=== PATIENT | female | born 1985 | race Two or more races ===

== ENCOUNTER 2018-07-04 20:18 | Emergency (ER) | payer OTHER ==
[2018-07-04 20:29] VITALS: BP 117/65
== END 2018-07-04 22:04 | disposition left against medical advice (07) ==
LOC: ER 20:18
DX: Z53.21 Procedure and treatment not carried out due to patient leaving prior to being seen by health care provider (principal)

== ENCOUNTER 2018-08-10 09:00 | Emergency (ER) | payer MEDICAID, OTHER ==
--- NOTE | 2018-08-10 09:37 | ER Document Report ---
ED General - General Chief Complaint: Weakness Stated Complaint: ARM/HAND TINGLING, FATIGUE Time Seen by Provider: 08/10/18 09:32 Mode of Arrival: Ambulatory Information source: Patient TRAVEL OUTSIDE OF THE [place] IN LAST 30 DAYS: No - HPI Patient complains to provider of: Fatigue Onset: Other - 4 days Onset/Duration: Persistent Quality of pain: No pain Associated symptoms: Body/muscle aches, Nausea, Weakness Exacerbated by: Denies Relieved by: Denies Similar symptoms previously: No Recently seen / treated by doctor: No Notes: Patient is a 33-year-old female presenting to the emergency room today complaining of feelings of generalized fatigue and not feeling herself patient reports using CBD oils times 3 months and recently discontinuing this, she started taking vitamin B12 a few days ago as well when she started feeling her symptoms, denies chest pain or shortness of breath, no fever, no nausea, vomiting or diarrhea - Related Data Allergies/Adverse Reactions: kiwi [Kiwi (Actinidia Chinensis)] Allergy (Verified 08/10/18 09:04) Past Medical History - General Information source: Patient - Social History Smoking Status: Never Smoker Frequency of alcohol use: None Drug Abuse: None Family History: Reviewed & Not Pertinent Patient has suicidal ideation: No Patient has homicidal ideation: No Renal/ Medical History: Denies: Hx Peritoneal Dialysis Psychiatric Medical History: Reports: Hx Anxiety - And panic attacks, Hx Depression Past Surgical History: Reports: Hx Section, Hx Genitourinary Surgery - Fallopian tube removed., Hx Tubal Ligation - Immunizations Hx Diphtheria, Pertussis, Tetanus Vaccination: Yes Review of Systems - Review of Systems Constitutional: See HPI EENT: No symptoms reported Cardiovascular: No symptoms reported Respiratory: No symptoms reported Gastrointestinal: No symptoms reported Genitourinary: No symptoms reported Female Genitourinary: No symptoms reported Musculoskeletal: No symptoms reported Skin: No symptoms reported Hematologic/Lymphatic: No symptoms reported Neurological/Psychological: See HPI -: Yes All other systems reviewed and negative Physical Exam - Vital signs Vitals: Temp Pulse Resp BP Pulse Ox 98.9 F 96 16 117/63 100 08/10/18 09:24 08/10/18 09:24 08/10/18 09:24 08/10/18 09:24 08/10/18 09:24 Interpretation: Normal - General General appearance: Appears well, Alert - HEENT Head: Normocephalic, Atraumatic Eyes: Normal Pupils: PERRL - Respiratory Respiratory status: No respiratory distress Chest status: Nontender Breath sounds: Normal Chest palpation: Normal - Cardiovascular Rhythm: Regular Heart sounds: Normal auscultation Murmur: No - Abdominal Inspection: Normal Distension: No distension Bowel sounds: Normal Tenderness: Nontender Organomegaly: No organomegaly - Back Back: Normal, Nontender - Extremities General upper extremity: Normal inspection, Nontender, Normal color, Normal ROM, Normal temperature General lower extremity: Normal inspection, Nontender, Normal color, Normal ROM, Normal temperature, Normal weight bearing. No: Marylu's sign - Neurological Neuro grossly intact: Yes Cognition: Normal Orientation: AAOx4 [place] Coma Scale Eye Opening: Spontaneous [place] Coma Scale Verbal: Oriented [place] Coma Scale Motor: Obeys Commands [place] Coma Scale Total: 15 Speech: Normal Motor strength normal: LUE, RUE, LLE, RLE Sensory: Normal - Psychological Associated symptoms: Anxious - Skin Skin Temperature: Warm Skin Moisture: Dry Skin Color: Normal Course - Re-evaluation Re-evalutation: 08/10/18 20:17 Lab findings unremarkable and discussed with patient at bedside, symptoms likely related to CBD oil usage and then abrupt stoppage, patient advised that symptoms may last for the next few days while the CBD oil is still in her system, advised to follow-up with a primary care provider or return if symptoms worsen, patient acknowledges understanding and agreement with this plan - Vital Signs Vital signs: Temp Pulse Resp BP Pulse Ox 98.2 F 92 18 124/74 99 08/10/18 12:20 08/10/18 12:20 08/10/18 12:20 08/10/18 12:20 08/10/18 12:20 - Laboratory Result Diagrams: 08/10/18 09:59 08/10/18 09:59 Laboratory results interpreted by me: 08/10/18 08/10/18 08/10/18 09:59 09:59 09:59 WBC 12.8 H RDW 14.3 H Seg Neutrophils % 82.6 H Lymphocytes % 11.7 L Absolute Neutrophils 10.6 H Carbon Dioxide 20 L Total Protein 8.4 H Albumin 5.3 H Urine Protein 30 H Urine Ketones 80 H Urine Blood MODERATE H - Diagnostic Test Radiology reviewed: Image reviewed, Reports reviewed Discharge - Discharge Clinical Impression: Paresthesias, Dehydration Fatigue Qualifiers: Fatigue type: unspecified Qualified Code(s): R53.83 - Other fatigue Condition: Stable Disposition: HOME, SELF-CARE Instructions: Fatigue ([facility]), Numbness or Paresthesia ([facility]) Additional Instructions: Follow up with your primary care provider in one to 2 days. Return to the emergency room immediately if symptoms worsen or any additional concerns.
[2018-08-10 10:27] LABS: ABSOLUTE BASOPHILS # (AUTO) 0.1 10^3/uL (0.0-0.2); ABSOLUTE LYMPHOCYTES (AUTO) 1.5 10^3/uL (0.5-4.7); ABSOLUTE MONOCYTES (AUTO) 0.6 10^3/uL (0.1-1.4); ABSOLUTE NEUT (AUTO) 10.6 10^3/uL (1.7-8.2); BASOPHILS % (AUTO) 0.5 % (0-2); EOSINOPHILS % (AUTO) 0.2 % (0-6); HEMOGLOBIN 14.8 g/dL (12.0-15.5); LYMPHOCYTES % (AUTO) 11.7 % (13-45); MEAN CORPUSCULAR HEMOGLOBIN 31.3 pg (27.0-33.4); MEAN CORPUSCULAR HGB CONC 33.6 g/dL (32.0-36.0); MEAN CORPUSCULAR VOLUME 93 fl (80-97); PLATELET COUNT 215 10^3/uL (150-450); RED BLOOD COUNT 4.72 10^6/uL (3.72-5.28); RED CELL DISTRIBUTION WIDTH 14.3 % (11.5-14.0); SEGMENTED NEUTROPHILS % (AUTO) 82.6 % (42-78); TOTAL CELLS COUNTED % (AUTO) 100 %; WHITE BLOOD COUNT 12.8 10^3/uL (4.0-10.5)
[2018-08-10 10:30] LABS: APPEARANCE,URINE CLOUDY; BILIRUBIN,URINE NEGATIVE (NEGATIVE); COLOR,URINE AMBER; GLUCOSE, URINE NEGATIVE (NEGATIVE); KETONES,URINE 80 mg/dL (NEGATIVE); LEUKOCYTE ESTERASE,URINE NEGATIVE (NEGATIVE); NITRITE,URINE NEGATIVE (NEGATIVE); PROTEIN,URINE 30 mg/dL (NEGATIVE); URINE SPECIFIC GRAVITY 1.028; UROBILINOGEN,URINE NEGATIVE mg/dL (<2.0)
[2018-08-10 10:41] LABS: ALANINE AMINOTRANSFERASE 21 U/L (9-52); ALBUMIN 5.3 g/dL (3.5-5.0); ALKALINE PHOSPHATASE 93 U/L (38-126); ANION GAP 15 (5-19); ASPARTATE AMINO TRANSFERASE 21 U/L (14-36); BILIRUBIN,DIRECT 0.2 mg/dL (0.0-0.4); BLOOD UREA NITROGEN 19 mg/dL (7-20); CALCIUM 9.8 mg/dL (8.4-10.2); CARBON DIOXIDE 20 mmol/L (22-30); CHLORIDE 103 mmol/L (98-107); GLUCOSE 98 mg/dL (75-110); POTASSIUM 3.7 mmol/L (3.6-5.0); SODIUM 138.4 mmol/L (137-145); TOTAL PROTEIN 8.4 g/dL (6.3-8.2)
[2018-08-10 11:50] LABS: URINE AMPHETAMINES SCREEN NEGATIVE; URINE BARBITURATES SCREEN NEGATIVE; URINE BENZODIAZEPINES SCREEN NEGATIVE; URINE COCAINE SCREEN NEGATIVE; URINE MARIJUANA (THC) SCREEN UNCONFIRMED POSITIVE; URINE METHADONE SCREEN NEGATIVE; URINE PHENCYCLIDINE SCREEN NEGATIVE
[2018-08-10 12:22] VITALS: BP 124/74
== END 2018-08-10 12:22 | disposition home or self-care (01) ==
LOC: ER 09:00
DX: R53.83 Other fatigue (principal); R20.2 Paresthesia of skin; E86.0 Dehydration; Z91.018 Allergy to other foods
CPT/HCPCS: 36415; 80053; 80307; 81001; 81025; 85025; 99284

== ENCOUNTER 2018-08-22 11:37 | Emergency (ER) | payer SELFPAY ==
[2018-08-22 12:43] LABS: ABSOLUTE LYMPHOCYTES (AUTO) 1.8 10^3/uL (0.5-4.7); ABSOLUTE MONOCYTES (AUTO) 0.5 10^3/uL (0.1-1.4); ABSOLUTE NEUT (AUTO) 5.5 10^3/uL (1.7-8.2); BASOPHILS % (AUTO) 0.4 % (0-2); EOSINOPHILS % (AUTO) 0.3 % (0-6); HEMATOCRIT 42.4 % (36.0-47.0); HEMOGLOBIN 14.7 g/dL (12.0-15.5); LYMPHOCYTES % (AUTO) 23.3 % (13-45); MEAN CORPUSCULAR HEMOGLOBIN 32.3 pg (27.0-33.4); MEAN CORPUSCULAR HGB CONC 34.7 g/dL (32.0-36.0); MEAN CORPUSCULAR VOLUME 93 fl (80-97); MONOCYTES % (AUTO) 6.2 % (3-13); PLATELET COUNT 256 10^3/uL (150-450); RED BLOOD COUNT 4.57 10^6/uL (3.72-5.28); SEGMENTED NEUTROPHILS % (AUTO) 69.8 % (42-78); TOTAL CELLS COUNTED % (AUTO) 100 %; WHITE BLOOD COUNT 7.9 10^3/uL (4.0-10.5)
--- NOTE | 2018-08-22 12:50 | RADIOLOGY REPORT (SQ) ---
EXAM DESCRIPTION: U/S ABDOMEN LIMITED W/O DOP COMPLETED DATE/TIME: 08/22/2018 12:41 pm REASON FOR STUDY: Known gallstones, worsening symptoms COMPARISON: Bilateral renal ultrasound 05/31/2015 TECHNIQUE: Dynamic and static grayscale images acquired of the abdomen and recorded on PACS. Additio nal selected color Doppler and spectral images recorded. LIMITATIONS: None. FINDINGS: PANCREAS: Midline pancreas unremarkable LIVER: No masses. Echotexture normal. LIVER VASCULATURE: Normal directional flow of the main portal vein and hepatic veins. GALLBLADDER: Multiple shadowing gallstones packed in the gallbladder. No gross gallbladder wall thic kening or pericholecystic fluid. Negative sonographic Alegre sign ULTRASOUND-DETECTED ALEGRE'S SIGN: Negative. INTRAHEPATIC DUCTS AND COMMON DUCT: CBD and intrahepatic ducts normal caliber. No filling defects. INFERIOR VENA CAVA: Normal flow. AORTA: No aneurysm. RIGHT KIDNEY: Normal size. Normal echogenicity. No solid or suspicious masses. No hydronephrosis. No calcifications. PERITONEAL AND RIGHT PLEURAL SPACE: No ascites or effusions. OTHER: No other significant findings. IMPRESSION: Multiple shadowing gallstones packed in the gallbladder. No gallbladder wall thickening or pericholecystic fluid. Negative sonographic Alegre sign today TECHNICAL DOCUMENTATION: JOB ID: [id number] [employer]- All Rights Reserved Reading location - IP/workstation name: [email or web address]
[2018-08-22 12:57] LABS: APPEARANCE,URINE CLEAR; BILIRUBIN,URINE NEGATIVE (NEGATIVE); COLOR,URINE STRAW; GLUCOSE, URINE NEGATIVE (NEGATIVE); KETONES,URINE NEGATIVE (NEGATIVE); LEUKOCYTE ESTERASE,URINE NEGATIVE (NEGATIVE); NITRITE,URINE NEGATIVE (NEGATIVE); PROTEIN,URINE NEGATIVE (NEGATIVE); URINE SPECIFIC GRAVITY 1.006; UROBILINOGEN,URINE NEGATIVE mg/dL (<2.0)
[2018-08-22 12:58] LABS: ALANINE AMINOTRANSFERASE 28 U/L (9-52); ALBUMIN 4.8 g/dL (3.5-5.0); ALKALINE PHOSPHATASE 89 U/L (38-126); ANION GAP 10 (5-19); ASPARTATE AMINO TRANSFERASE 28 U/L (14-36); BILIRUBIN,TOTAL 0.4 mg/dL (0.2-1.3); BLOOD UREA NITROGEN 13 mg/dL (7-20); CARBON DIOXIDE 26 mmol/L (22-30); CHLORIDE 105 mmol/L (98-107); GLUCOSE 105 mg/dL (75-110); POTASSIUM 3.9 mmol/L (3.6-5.0); SODIUM 140.5 mmol/L (137-145)
[2018-08-22 12:59] LABS: BILIRUBIN,DIRECT 0.2 mg/dL (0.0-0.4); LIPASE 51.2 U/L (23-300); TOTAL PROTEIN 8.6 g/dL (6.3-8.2)
--- NOTE | 2018-08-22 14:25 | ER Document Report ---
ED General - General Chief Complaint: Abdominal Pain Stated Complaint: ABDOMINAL PAIN Time Seen by Provider: 08/22/18 11:51 Notes: Patient is a 33-year-old female who presents emergency department with a chief complaint of pain in her right upper quadrant and a swollen gland on the right side of her neck. Her right upper quadrant abdominal pain started yesterday and describes it as an intermittent coming and going feeling like she had when she had gallbladder pain. She states that she was also seen last week for the same issue and changed her diet and forgot about the pain. She started eating fatty foods again and felt the pain again yesterday. The gland on the right side of her neck she noticed about 3 days ago. She also has had sinus pressure for the past week. She denies any smoking, alcohol use, or illicit drug use. Denies any nausea, vomiting, or diarrhea. Past medical history includes GERD and cholelithiasis. She is supposed to be taking Zantac, but stopped using it since last visit. TRAVEL OUTSIDE OF THE [place] IN LAST 30 DAYS: No - Related Data Allergies/Adverse Reactions: kiwi [Kiwi (Actinidia Chinensis)] Allergy (Verified 08/22/18 11:38) Past Medical History - Social History Smoking Status: Unknown if Ever Smoked Chew tobacco use (# tins/day): No Frequency of alcohol use: None Drug Abuse: None Family History: Reviewed & Not Pertinent Patient has suicidal ideation: No Patient has homicidal ideation: No Renal/ Medical History: Denies: Hx Peritoneal Dialysis GI Medical History: Reports: Hx Gastroesophageal Reflux Disease Psychiatric Medical History: Reports: Hx Anxiety - And panic attacks, Hx Depression - anxiety Past Surgical History: Reports: Hx Section, Hx Genitourinary Surgery - Fallopian tube removed., Hx Tubal Ligation - Immunizations Hx Diphtheria, Pertussis, Tetanus Vaccination: Yes Review of Systems - Review of Systems Notes: REVIEW OF SYSTEMS: CONSTITUTIONAL : Denies recent illness. Denies recent unintentional weight loss. Denies fever, chills, or sweats. EENT: See HPI CARDIOVASCULAR: Denies chest pain. RESPIRATORY: Denies shortness of breath, cough, congestion, difficulty breathing, or wheezing. GASTROINTESTINAL: See HPI GENITOURINARY: Denies difficulty urinating, burning, blood in urine, urgency or frequency. MUSCULOSKELETAL: Denies neck and back pain. Denies joint pain or swelling. SKIN: Denies rash, itchiness, or lesions HEMATOLOGIC : Denies easy bruising or bleeding. LYMPHATIC: See HPI NEUROLOGICAL: Denies no numbness or tingling denies weakness. Denies headache. Denies altered mental status. Denies alteration in speech. PSYCHIATRIC: Denies stress, anxiety, alteration in sleep patterns, or depression. All other systems reviewed and negative. Physical Exam - Vital signs Vitals: Temp Pulse Resp BP Pulse Ox 98.2 F 96 20 124/60 100 08/22/18 11:40 08/22/18 11:40 08/22/18 11:40 08/22/18 11:40 08/22/18 11:40 - Notes Notes: PHYSICAL EXAMINATION: GENERAL: Appears well, healthy, well-nourished, no acute distress. HEAD: Normocephalic, atraumatic. EYES: PERRL, conjunctiva normal, all extraocular movements intact, sclera nonicteric ENT: Moist mucous membranes. NECK: Supple, no noticeable swelling, redness, rash. Normal range of motion. LUNGS: Equal breath sounds bilaterally and clear to auscultation. No wheezes rales or rhonchi. CARDIOVASCULAR: S1-S2, regular rate, regular rhythm. Radial pulses 2+, normal. ABDOMEN: Normoactive bowel sounds. Soft, nontender, no guarding, no rebound tenderness, and no masses palpated. EXTREMITIES: Normal strength and range of motion, no pitting or edema. No cyanosis. NEUROLOGICAL: Moves all extremities upon command. Strength 5/5 in all extremit ies. PSYCH: Normal mood, normal affect. SKIN: Warm, dry. No rash, lesions, ulcerations noted. Normal skin turgor. Course - Re-evaluation Re-evalutation: 08/22/18 14:29 Patient's physical exam is unremarkable and she actually denies any pain at the time of my assessment. She does have gallstones noted on her right upper quadr ant ultrasound. She will be restarted on her Zantac and follow-up with outpatient surgery in regards to this visit. She does have tenderness to her maxillary sinuses. She will also be started on Augmentin for her sinus infection. I will also prescribe Flonase for the erythema and edema in her na yumi passages. Her hematology and chemistries are altogether unremarkable. Her hCG is negative. I do not suspect patient has any life-threatening etiology at this time. She is in agreement with the plan of care. Verbal discharge instructions were given to the patient. They verbalized understanding. They are stable for discharge. - Vital Signs Vital signs: Temp Pulse Resp BP Pulse Ox 98.2 F 96 20 124/60 100 08/22/18 11:40 08/22/18 11:40 08/22/18 11:40 08/22/18 11:40 08/22/18 11:40 - Laboratory Result Diagrams: 08/22/18 12:24 08/22/18 12:24 Laboratory results interpreted by me: 08/22/18 08/22/18 12:24 12:24 Total Protein 8.6 H Urine Blood SMALL H Discharge - Discharge Clinical Impression: Gall bladder stones Sinusitis Qualifiers: Sinusitis location: maxillary Chronicity: acute Recurrence: non-recurrent Qualified Code(s): J01.00 - Acute maxillary sinusitis, unspecified Condition: Stable Disposition: HOME, SELF-CARE Instructions: Gallbladder Disease ([facility]), Low-Fat Diet ([facility]) Additional Instructions: You were seen today in the emergency department for gallbladder pain and a swollen gland to the right side of your neck. You have a sinus infection and gallstones. Please follow-up with the surgeon below on Friday. You have also been given antibiotics, please finish all your antibiotics as prescribed. You have also been given Flonase, use as directed. Please follow-up with your primary care provider in the surgeon within the next week. Prescriptions: Amox Tr/Potassium Clavulanate [Augmentin 875-125 Tablet] 1 tab PO BID 10 Days #20 tablet Fluticasone Propionate [Flonase Nasal Latimer 50 Mcg/Latimer 16 gm] 2 sprays NASL Q12 #1 inhaler Ranitidine HCl [Zantac 150 mg Tablet] 150 mg PO BID #60 tablet Referrals: TAMEKA MARTINEZ MD [ACTIVE STAFF] - 08/24/18
[2018-08-22 14:54] VITALS: BP 109/65
== END 2018-08-22 14:54 | disposition home or self-care (01) ==
LOC: ER 11:37
DX: K80.20 Calculus of gallbladder without cholecystitis without obstruction (principal); J01.00 Acute maxillary sinusitis, unspecified; R10.11 Right upper quadrant pain; M54.2 Cervicalgia
CPT/HCPCS: 36415; 76705; 80053; 81001; 83690; 84703; 85025; 99284

== ENCOUNTER 2018-09-26 22:53 | Emergency (ER) | payer SELFPAY ==
[2018-09-27 01:43] LABS: ABSOLUTE EOSINOPHILS # (AUTO) 0.1 10^3/uL (0.0-0.6); ABSOLUTE LYMPHOCYTES (AUTO) 2.5 10^3/uL (0.5-4.7); ABSOLUTE MONOCYTES (AUTO) 0.7 10^3/uL (0.1-1.4); BASOPHILS % (AUTO) 0.5 % (0-2); EOSINOPHILS % (AUTO) 0.7 % (0-6); HEMATOCRIT 37.9 % (36.0-47.0); HEMOGLOBIN 12.9 g/dL (12.0-15.5); LYMPHOCYTES % (AUTO) 30.4 % (13-45); MEAN CORPUSCULAR HEMOGLOBIN 31.1 pg (27.0-33.4); MEAN CORPUSCULAR VOLUME 92 fl (80-97); MONOCYTES % (AUTO) 8.1 % (3-13); PLATELET COUNT 198 10^3/uL (150-450); RED BLOOD COUNT 4.14 10^6/uL (3.72-5.28); RED CELL DISTRIBUTION WIDTH 13.6 % (11.5-14.0); SEGMENTED NEUTROPHILS % (AUTO) 60.3 % (42-78); TOTAL CELLS COUNTED % (AUTO) 100 %; WHITE BLOOD COUNT 8.2 10^3/uL (4.0-10.5)
--- NOTE | 2018-09-27 01:58 | RADIOLOGY REPORT (SQ) ---
EXAM DESCRIPTION: XR CHEST 1 VIEW COMPLETED DATE/TME: 09/27/2018 01:26 CLINICAL HISTORY: 33 years, Female, CP Comparison: None FINDINGS: No focal lung consolidation. No pleural effusion. No pneumothorax. Cardiac and mediastinal silhouette is unremarkable. No acute osseous abnormality. Soft tissues are unremarkable. IMPRESSION: No acute findings. No focal lung consolidation.
[2018-09-27 01:59] LABS: ALANINE AMINOTRANSFERASE 47 U/L (9-52); ALBUMIN 4.1 g/dL (3.5-5.0); ALKALINE PHOSPHATASE 89 U/L (38-126); ANION GAP 10 (5-19); ASPARTATE AMINO TRANSFERASE 40 U/L (14-36); BILIRUBIN,DIRECT 0.2 mg/dL (0.0-0.4); BILIRUBIN,TOTAL 0.2 mg/dL (0.2-1.3); BLOOD UREA NITROGEN 21 mg/dL (7-20); CALCIUM 9.6 mg/dL (8.4-10.2); CARBON DIOXIDE 27 mmol/L (22-30); CHLORIDE 103 mmol/L (98-107); CREATINE KINASE 61 U/L (30-135); GLUCOSE 100 mg/dL (75-110); POTASSIUM 3.7 mmol/L (3.6-5.0); SODIUM 140.4 mmol/L (137-145); TOTAL PROTEIN 7.1 g/dL (6.3-8.2)
[2018-09-27 02:07] LABS: AMORPHOUS SEDIMENT,URINE TRACE /HPF; APPEARANCE,URINE TURBID; BILIRUBIN,URINE NEGATIVE (NEGATIVE); COLOR,URINE YELLOW; GLUCOSE, URINE NEGATIVE (NEGATIVE); KETONES,URINE NEGATIVE (NEGATIVE); LEUKOCYTE ESTERASE,URINE NEGATIVE (NEGATIVE); NITRITE,URINE NEGATIVE (NEGATIVE); PROTEIN,URINE NEGATIVE (NEGATIVE); UROBILINOGEN,URINE NEGATIVE mg/dL (<2.0)
[2018-09-27 02:10] LABS: CREATINE KINASE MB 0.33 ng/mL (<4.55)
[2018-09-27 02:14] LABS: TROPONIN I < 0.012 ng/mL
[2018-09-27] MEDS ORDERED: IBUPROFEN 600 MG TABLET PO ONE (02:36)
--- NOTE | 2018-09-27 05:20 | ER Document Report ---
ED General - General Chief Complaint: Chest Pain Stated Complaint: CHEST PAIN Time Seen by Provider: 09/27/18 01:10 Primary Care Provider: [facility] [Provider Group] - Follow up as needed [facility] [Provider Group] - Follow up as needed Notes: Patient is a 33-year-old female presents to the emergency department with chest pain. States she has pain over the left side of her chest. States is been intermittent for the last 2 days. States 2 days ago when she noticed it she thought it was due to her over exercising. Patient states that time she feels as though his heart is having a "spasm." Patient states this afternoon into this evening the pain radiated from the left side of her chest on her right arm and developed some right arm numbness. Patient states she does have a history of anxiety but is not taking any medications for same. States she did have an episode of chest pain in [place] they told her it was anxiety without any testing. Patient voices concerned that it may be "my heart." Patient is denying any nausea, vomiting, abdominal pain, shortness of breath, dysuria , Fevers. TRAVEL OUTSIDE OF THE [place] IN LAST 30 DAYS: No - Related Data Allergies/Adverse Reactions: kiwi [Kiwi (Actinidia Chinensis)] Allergy (Verified 09/26/18 23:03) Past Medical History - General Information source: Patient - Social History Smoking Status: Never Smoker Family History: Reviewed & Not Pertinent Patient has suicidal ideation: No Patient has homicidal ideation: No Renal/ Medical History: Denies: Hx Peritoneal Dialysis GI Medical History: Reports: Hx Gastroesophageal Reflux Disease Psychiatric Medical History: Reports: Hx Anxiety - And panic attacks, Hx Depression - anxiety Past Surgical History: Reports: Hx Section, Hx Genitourinary Surgery - Fallopian tube removed., Hx Tubal Ligation - Immunizations Hx Diphtheria, Pertussis, Tetanus Vaccination: Yes Review of Systems - Review of Systems Constitutional: denies: Fever EENT: No symptoms reported Cardiovascular: See HPI Respiratory: See HPI Gastrointestinal: No symptoms reported Genitourinary: No symptoms reported Female Genitourinary: No symptoms reported Musculoskeletal: See HPI Skin: No symptoms reported Hematologic/Lymphatic: No symptoms reported Neurological/Psychological: No symptoms reported Physical Exam - Vital signs Vitals: Temp Pulse Resp BP Pulse Ox 97.8 F 87 16 127/82 H 100 09/26/18 23:09 05/04/19 23:09 09/26/18 23:09 09/26/18 23:09 09/26/18 23:09 - Notes Notes: GENERAL: Alert, interacts well. No acute distress. HEAD: Normocephalic, atraumatic. EYES: Pupils equal, round, and reactive to light. Extraocular movements intact. ENT: Oral mucosa moist, tongue midline. NECK: Full range of motion. Supple. Trachea midline. LUNGS: Clear to auscultation bilaterally, no wheezes, rales, or rhonchi. No respiratory distress. HEART: Regular rate and rhythm. No murmur Chest: No crepitus felt, no erythema or ecchymosis noted anterior posterior chest wall. Chest pain over left chest, nonreproducible. ABDOMEN: Soft, non-tender. Non-distended. Bowel sounds present in all 4 quadrants. EXTREMITIES: Moves all 4 extremities spontaneously. No edema, normal radial and dorsalis pedis pulses bilaterally. No cyanosis. BACK: no cervical, thoracic, lumbar midline tenderness. No saddle anesthesia, normal distal neurovascular exam. NEUROLOGICAL: Alert and oriented x3. Normal speech. cranial nerves II through XII grossly intact PSYCH: Normal affect, normal mood. SKIN: Warm, dry, normal turgor. No rashes or lesions noted. Course - Re-evaluation Re-evalutation: 09/27/18 Laboratory 09/27/18 09/27/18 09/27/18 01:30 01:30 01:30 WBC 8.2 RBC 4.14 Hgb 12.9 Hct 37.9 MCV 92 MCH 31.1 MCHC 34.0 RDW 13.6 Plt Count 198 Seg Neutrophils % 60.3 Lymphocytes % 30.4 Monocytes % 8.1 Eosinophils % 0.7 Basophils % 0.5 Absolute Neutrophils 5.0 Absolute Lymphocytes 2.5 Absolute Monocytes 0.7 Absolute Eosinophils 0.1 Absolute Basophils 0.0 Sodium 140.4 Potassium 3.7 Chloride 103 Carbon Dioxide 27 Anion Gap 10 BUN 21 H Creatinine 0.54 Est GFR ( Amer) > 60 Est GFR (Non-Af Amer) > 60 Glucose 100 Calcium 9.6 Total Bilirubin 0.2 Direct Bilirubin 0.2 Neonat Total Bilirubin Not Reportable Neonat Direct Bilirubin Not Reportable Neonat Indirect Bili Not Reportable AST 40 H ALT 47 Alkaline Phosphatase 89 Creatine Kinase 61 CK-MB (CK-2) 0.33 Troponin I < 0.012 Total Protein 7.1 Albumin 4.1 Urine Color Urine Appearance Urine pH Ur Specific [place] Urine Protein Urine Glucose (UA) Urine Ketones Urine Blood Urine Nitrite Urine Bilirubin Urine Urobilinogen Ur Leukocyte Esterase Squamous Epi Cells Auto Amorphous Sediment Auto Urine Mucus (Auto) Urine Ascorbic Acid Urine HCG, Qual 09/27/18 09/27/18 01:50 04:25 WBC RBC Hgb Hct MCV MCH MCHC RDW Plt Count Seg Neutrophils % Lymphocytes % Monocytes % Eosinophils % Basophils % Absolute Neutrophils Absolute Lymphocytes Absolute Monocytes Absolute Eosinophils Absolute Basophils Sodium Potassium Chloride Carbon Dioxide Anion Gap BUN Creatinine Est GFR ( Amer) Est GFR (Non-Af Amer) Glucose Calcium Total Bilirubin Direct Bilirubin Neonat Total Bilirubin Neonat Direct Bilirubin Neonat Indirect Bili AST ALT Alkaline Phosphatase Creatine Kinase CK-MB (CK-2) Troponin I < 0.012 Total Protein Albumin Urine Color YELLOW Urine Appearance TURBID Urine pH 9.0 Ur Specific [place] 1.020 Urine Protein NEGATIVE Urine Glucose (UA) NEGATIVE Urine Ketones NEGATIVE Urine Blood NEGATIVE Urine Nitrite NEGATIVE Urine Bilirubin NEGATIVE Urine Urobilinogen NEGATIVE Ur Leukocyte Esterase NEGATIVE Squamous Epi Cells Auto <1 Amorphous Sediment Auto TRACE Urine Mucus (Auto) RARE Urine Ascorbic Acid NEGATIVE Urine HCG, Qual NEGATIVE Patient is very concerned that this was "her heart." States she had family history of anxiety that was misdiagnosed and had a family member have a heart attack. I discussed with patient Use of troponins in the emergency department. Have also discussed the use of Motrin should this pain be musculoskeletal nature. Patient has had 2 delta negative troponins in the emergency department. Chest x-ray reveals no signs of abnormalities. Patient's pain is overall improved with Motrin administration. Discussed this could be musculoskeletal and this could also be part of her anxiety. Discussed close follow-up with [facility] and [facility] as patient voices she is uninsured. Patient currently denies any chest pain at this time. Vitals are stable, stable for discharge. - Vital Signs Vital signs: Temp Pulse Resp BP Pulse Ox 97.7 F 72 16 94/69 L 100 09/27/18 06:00 09/27/18 06:00 09/27/18 06:00 09/27/18 06:00 09/27/18 06:00 - Laboratory Result Diagrams: 09/27/18 01:30 09/27/18 01:30 Laboratory results interpreted by me: 09/27/18 01:30 BUN 21 H AST 40 H Discharge - Discharge Clinical Impression: Chest pain Qualifiers: Chest pain type: unspecified Qualified Code(s): R07.9 - Chest pain, unspecified Condition: Stable Disposition: HOME, SELF-CARE Instructions: Chest Pain of Unclear Cause ([facility]) Additional Instructions: As we discussed you have been seen and treated in the emergency department for your chest pain. No signs of elevation in cardiac enzymes. As we discussed you should follow-up with [facility] or [facility] for continued care of your anxiety. You should also take [id number] Tylenol or Motrin for generalized muscle aches. Please make sure you follow-up with these clinics or return to the emergency room for any other concerning symptoms. Referrals: [facility] [Provider Group] - Follow up as needed [facility] [Provider Group] - Follow up as needed
[2018-09-27 06:13] VITALS: BP 94/69
--- NOTE | 2018-09-27 22:39 | EKG REPORT ---
SEVERITY:- ABNORMAL ECG - SINUS RHYTHM BORDERLINE PROLONGED QT INTERVAL : Confirmed by: Dima Celis 27-Sep-2018 22:38:30
== END 2018-09-27 06:00 | disposition home or self-care (01) ==
LOC: ER 22:53
DX: R07.9 Chest pain, unspecified (principal); R20.0 Anesthesia of skin; Z91.018 Allergy to other foods
CPT/HCPCS: 36415; 71045; 80053; 81001; 81025; 82550; 82553; 84484; 85025; 87086; 93005; 93010; 99285

== ENCOUNTER 2019-12-07 09:10 | Emergency (ER) | payer SELFPAY ==
--- NOTE | 2019-12-07 10:39 | RADIOLOGY REPORT (SQ) ---
EXAM DESCRIPTION: CT HEAD WITHOUT IMAGES COMPLETED DATE/TIME: 12/07/2019 10:20 am REASON FOR STUDY: right sided numbness COMPARISON: None. TECHNIQUE: Axial images acquired through the brain without intravenous contrast. Images reviewed wi th bone, brain and subdural windows. Additional sagittal and coronal reconstructions were generated. Images stored on PACS. All CT scanners at this facility use dose modulation, iterative reconstruction, and/or weight based d osing when appropriate to reduce radiation dose to as low as reasonably achievable (ALARA). [facility]: Dose Right [facility]: CareDose [facility]: Dose Right [facility]: Teradose 4D [facility]: [email or web address] RADIATION DOSE: CT Rad equipment meets quality standard of care and radiation dose reduction techniq ues were employed. CTDIvol: 53.2 mGy. DLP: 991 mGy-cm. mGy. LIMITATIONS: None. FINDINGS: VENTRICLES: Normal size and contour. CEREBRUM: No masses. No hemorrhage. No midline shift. No evidence for acute infarction. Normal gra y/white matter differentiation. No areas of low density in the white matter. CEREBELLUM: No masses. No hemorrhage. No alteration of density. No evidence for acute infarction. EXTRAAXIAL SPACES: No fluid collections. No masses. ORBITS AND GLOBE: No intra- or extraconal masses. Normal contour of globe without masses. CALVARIUM: No fracture. PARANASAL SINUSES: No fluid or mucosal thickening. SOFT TISSUES: No mass or hematoma. OTHER: No other significant finding. IMPRESSION: NORMAL BRAIN CT WITHOUT CONTRAST. EVIDENCE OF ACUTE STROKE: NO. COMMENT: Quality ID # [id number]: Final reports with documentation of one or more dose reduction techniques (e.g., Automated exposure control, adjustment of the mA and/or kV according to patient size, use of iterative reconstruction technique) TECHNICAL DOCUMENTATION: JOB ID: [id number] 2010 [employer]- All Rights Reserved Reading location - IP/workstation name: [email or web address]ES THE [facility]
[2019-12-07 10:51] LABS: APPEARANCE,URINE CLEAR; BILIRUBIN,URINE NEGATIVE (NEGATIVE); COLOR,URINE YELLOW; GLUCOSE, URINE NEGATIVE (NEGATIVE); KETONES,URINE NEGATIVE (NEGATIVE); PROTEIN,URINE NEGATIVE (NEGATIVE); URINE SPECIFIC GRAVITY 1.018; UROBILINOGEN,URINE NEGATIVE mg/dL (<2.0)
[2019-12-07 11:01] LABS: ABSOLUTE MONOCYTES (AUTO) 0.4 10^3/uL (0.1-1.4); ABSOLUTE NEUT (AUTO) 4.5 10^3/uL (1.7-8.2); BASOPHILS % (AUTO) 0.6 % (0-2); EOSINOPHILS % (AUTO) 0.4 % (0-6); HEMATOCRIT 41.9 % (36.0-47.0); HEMOGLOBIN 14.2 g/dL (12.0-15.5); LYMPHOCYTES % (AUTO) 28.3 % (13-45); MEAN CORPUSCULAR HEMOGLOBIN 30.8 pg (27.0-33.4); MEAN CORPUSCULAR HGB CONC 33.9 g/dL (32.0-36.0); MEAN CORPUSCULAR VOLUME 91 fl (80-97); MONOCYTES % (AUTO) 6.2 % (3-13); PLATELET COUNT 241 10^3/uL (150-450); RED BLOOD COUNT 4.61 10^6/uL (3.72-5.28); SEGMENTED NEUTROPHILS % (AUTO) 64.5 % (42-78); TOTAL CELLS COUNTED % (AUTO) 100 %; WHITE BLOOD COUNT 6.9 10^3/uL (4.0-10.5)
[2019-12-07 11:39] LABS: ALKALINE PHOSPHATASE 97 U/L (38-126); ANION GAP 8 (5-19); ASPARTATE AMINO TRANSFERASE 28 U/L (14-36); BILIRUBIN,TOTAL 0.6 mg/dL (0.2-1.3); BLOOD UREA NITROGEN 17 mg/dL (7-20); CALCIUM 9.5 mg/dL (8.4-10.2); CARBON DIOXIDE 24 mmol/L (22-30); CHLORIDE 105 mmol/L (98-107); GLUCOSE 116 mg/dL (75-110); POTASSIUM 3.6 mmol/L (3.6-5.0); TOTAL PROTEIN 8.5 g/dL (6.3-8.2)
--- NOTE | 2019-12-07 12:02 | ER Document Report ---
ED General - General Chief Complaint: Headache Stated Complaint: HEADACHE Time Seen by Provider: 12/07/19 09:32 Mode of Arrival: Ambulatory Information source: Patient TRAVEL OUTSIDE OF THE [place] IN LAST 30 DAYS: No - HPI Notes: Patient presents with several complaints. She states she is had some mild cough and congestion. She is also had some intermittent numbness and tingling of her right arm and face. She states that sometimes she has trouble with anxiety and feels like she has trouble talking. She also states that she has had some pain in her left flank for about 3 days. This left flank pain has been fairly constant. It radiates in the left lower abdomen. Nothing makes it better or worse. It is mild to moderate. Is an aching sensation. Her neurological complaints she states of been going on for approximately 1 week. - Related Data Allergies/Adverse Reactions: kiwi [Kiwi (Actinidia Chinensis)] Allergy (Verified 09/26/18 23:03) Past Medical History - General Information source: Patient - Social History Smoking Status: Never Smoker Frequency of alcohol use: Occasional Drug Abuse: None Family History: Reviewed & Not Pertinent Renal/ Medical History: Denies: Hx Peritoneal Dialysis GI Medical History: Reports: Hx Gastroesophageal Reflux Disease Psychiatric Medical History: Reports: Hx Anxiety - And panic attacks, Hx Depres allyson - anxiety Past Surgical History: Reports: Hx Section, Hx Genitourinary Surgery - Fallopian tube removed., Hx Tubal Ligation - Immunizations Hx Diphtheria, Pertussis, Tetanus Vaccination: Yes Review of Systems - Review of Systems Constitutional: denies: Chills, Fever Gastrointestinal: Abdominal pain, Nausea Neurological/Psychological: Anxiety, Numbness -: Yes All other systems reviewed and negative Physical Exam - Vital signs Vitals: Temp Pulse Resp BP Pulse Ox 98.4 F 106 H 20 132/64 H 92 12/07/19 09:14 12/07/19 09:14 12/07/19 09:14 12/07/19 09:14 12/07/19 09:14 Interpretation: Normal - General General appearance: Appears well, Alert - HEENT Head: Normocephalic, Atraumatic Eyes: Normal Pupils: PERRL - Respiratory Respiratory status: No respiratory distress Chest status: Nontender Breath sounds: Normal Chest palpation: Normal - Cardiovascular Rhythm: Regular Heart sounds: Normal auscultation Murmur: No - Abdominal Inspection: Normal Distension: No distension Bowel sounds: Normal Tenderness: Nontender Organomegaly: No organomegaly - Back Back: Normal, Nontender - Extremities General upper extremity: Normal inspection, Nontender, Normal color, Normal ROM, Normal temperature General lower extremity: Normal inspection, Nontender, Normal color, Normal ROM, Normal temperature, Normal weight bearing. No: Marylu's sign - Neurological Neuro grossly intact: Yes Cognition: Normal Orientation: AAOx4 [place]ante Coma Scale Eye Opening: Spontaneous [place] Coma Scale Verbal: Oriented [place] Coma Scale Motor: Obeys Commands Chante Coma Scale Total: 15 Speech: Normal Cranial nerves: Normal Cerebellar coordination: Normal. 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 No: Pronator drift Sensory: Normal - Psychological Associated symptoms: Normal affect, Normal mood - Skin Skin Temperature: Warm Skin Moisture: Dry Skin Color: Normal Course - Re-evaluation Re-evalutation: 12/07/19 12:00 Patient has several different complaints. She states she was concerned about [place] had a rapid test done yesterday that was negative. However they did not do a nasopharyngeal swab they just did an anterior nasal swab. Therefore I will redo her COVID test with a nasal pharyngeal swab. She also has some neurological complaints that appear nonspecific. Her exam and head CT are unremarkable. I have educated her that if these continue she would need to discuss an MRI with her primary care physician. Patient also has some left flank pain and some blood in her urine. She states that she is not on her menstrual cycle currently. Her urine is somewhat equivocal for infection. I will treat her with pain medication and antibiotics for this. I have also discussed anxiety with her and that I feel some of her symptoms are secondary to this. - Vital Signs Vital signs: Temp Pulse Resp BP Pulse Ox 98.4 F 106 H 20 132/64 H 92 12/07/19 09:14 12/07/19 09:14 12/07/19 09:14 12/07/19 09:14 12/07/19 09:14 - Laboratory Result Diagrams: 12/07/19 09:52 12/07/19 09:52 Laboratory results interpreted by me: 12/07/19 12/07/19 09:52 10:32 Sodium 136.6 L Glucose 116 H Total Protein 8.5 H Urine Blood MODERATE H Urine Nitrite (Reflex) POSITIVE H Urine Ascorbic Acid 20 H - Diagnostic Test Radiology reviewed: Image reviewed, Reports reviewed Discharge - Discharge Clinical Impression: Anxiety, Flank pain Headache Qualifiers: Headache type: unspecified Headache chronicity pattern: acute headache Intractability: not intractable Qualified Code(s): R51 - Headache Condition: Stable Disposition: HOME, SELF-CARE Instructions: Headache ([facility]), Anxiety ([facility]) Additional Instructions: Please contact your primary care physician as soon as possible to arrange follow-up. Please contact [facility] for help with your anxiety Please discuss an MRI with your family physician if your symptoms persist. Prescriptions: Nitrofurantoin Monohyd/M-Cryst [Macrobid 100 mg Capsule] 100 mg PO BID 5 Days #10 cap Tramadol HCl [Ultram] 50 mg PO Q6 PRN 3 Days #8 tablet PRN Reason: Forms: Return to Work Referrals: [facility] [Provider Group] - Follow up as needed
[2019-12-07 12:18] VITALS: BP 129/50
== END 2019-12-07 12:19 | disposition home or self-care (01) ==
LOC: ER 09:10
DX: R10.9 Unspecified abdominal pain (principal); R51 Headache; F41.9 Anxiety disorder, unspecified; R05 Cough; R11.0 Nausea; R31.9 Hematuria, unspecified; R20.0 Anesthesia of skin; R20.2 Paresthesia of skin; Z91.018 Allergy to other foods; Z20.828 Contact with and (suspected) exposure to other viral communicable diseases
CPT/HCPCS: 99284; 36415; 87086; 85025; 87635; 81025; 87088; 80053; 81001; 70450; C9803; 87186

== ENCOUNTER 2020-05-10 03:07 | Emergency (ER) | payer SELFPAY ==
[2020-05-10 04:26] LABS: ABSOLUTE BASOPHILS # (AUTO) 0.1 10^3/uL (0.0-0.2); ABSOLUTE EOSINOPHILS # (AUTO) 0.1 10^3/uL (0.0-0.6); ABSOLUTE LYMPHOCYTES (AUTO) 2.7 10^3/uL (0.5-4.7); ABSOLUTE MONOCYTES (AUTO) 0.6 10^3/uL (0.1-1.4); ABSOLUTE NEUT (AUTO) 6.5 10^3/uL (1.7-8.2); BASOPHILS % (AUTO) 0.5 % (0-2); EOSINOPHILS % (AUTO) 0.9 % (0-6); HEMATOCRIT 37.8 % (36.0-47.0); HEMOGLOBIN 12.7 g/dL (12.0-15.5); LYMPHOCYTES % (AUTO) 27.2 % (13-45); MEAN CORPUSCULAR HEMOGLOBIN 30.9 pg (27.0-33.4); MEAN CORPUSCULAR HGB CONC 33.7 g/dL (32.0-36.0); MEAN CORPUSCULAR VOLUME 92 fl (80-97); MONOCYTES % (AUTO) 6.1 % (3-13); PLATELET COUNT 243 10^3/uL (150-450); RED BLOOD COUNT 4.12 10^6/uL (3.72-5.28); RED CELL DISTRIBUTION WIDTH 13.6 % (11.5-14.0); SEGMENTED NEUTROPHILS % (AUTO) 65.3 % (42-78); TOTAL CELLS COUNTED % (AUTO) 100 %
[2020-05-10 04:32] LABS: APPEARANCE,URINE SLIGHTLY-CLOUDY; BILIRUBIN,URINE NEGATIVE (NEGATIVE); COLOR,URINE YELLOW; GLUCOSE, URINE NEGATIVE (NEGATIVE); KETONES,URINE NEGATIVE (NEGATIVE); LEUKOCYTE ESTERASE,URINE NEGATIVE (NEGATIVE); NITRITE,URINE NEGATIVE (NEGATIVE); PROTEIN,URINE NEGATIVE (NEGATIVE); URINE SPECIFIC GRAVITY 1.021; UROBILINOGEN,URINE NEGATIVE mg/dL (<2.0)
[2020-05-10 04:48] LABS: ALKALINE PHOSPHATASE 115 U/L (38-126); ANION GAP 5 (5-19); ASPARTATE AMINO TRANSFERASE 24 U/L (14-36); BILIRUBIN,TOTAL 0.2 mg/dL (0.2-1.3); BLOOD UREA NITROGEN 18 mg/dL (7-20); CALCIUM 9.7 mg/dL (8.4-10.2); CARBON DIOXIDE 29 mmol/L (22-30); CHLORIDE 103 mmol/L (98-107); GLUCOSE 105 mg/dL (75-110); POTASSIUM 3.9 mmol/L (3.6-5.0); TOTAL PROTEIN 7.4 g/dL (6.3-8.2)
--- NOTE | 2020-05-10 05:07 | ER Document Report ---
ED GI/ - General Chief Complaint: Abdominal Pain Stated Complaint: SEVERE ABDOMINAL PAIN Time Seen by Provider: 05/10/20 04:51 Primary Care Provider: REYNALDO HARDEN MD [ACTIVE STAFF] - Follow up as needed Mode of Arrival: Ambulatory Information source: Patient Notes: 35-year-old female patient presenting to the emergency department chief complaint of right upper quadrant abdominal pain. Patient reports the pain radiates around to her back. She reports associated nausea but denies any vomiting, diarrhea, fever or chills. She does report a history of gallstones, states this feels like a "gallbladder attack". Patient was actually scheduled to have her gallbladder removed but states that she got scared and did not have this done. TRAVEL OUTSIDE OF THE [place] IN LAST 30 DAYS: No - Related Data Allergies/Adverse Reactions: kiwi [Kiwi (Actinidia Chinensis)] Allergy (Verified 05/10/20 03:32) Past Medical History - General Information source: Patient - Social History Smoking Status: Former Smoker Frequency of alcohol use: None Drug Abuse: None Family History: Reviewed & Not Pertinent Renal/ Medical History: Denies: Hx Peritoneal Dialysis GI Medical History: Reports: Hx Gastroesophageal Reflux Disease Psychiatric Medical History: Reports: Hx Anxiety - And panic attacks, Hx Depression - anxiety Past Surgical History: Reports: Hx Section, Hx Genitourinary Surgery - Fallopian tube removed., Hx Tubal Ligation - Immunizations Hx Diphtheria, Pertussis, Tetanus Vaccination: Yes Review of Systems - Review of Systems Gastrointestinal: Abdominal pain, Nausea -: Yes All other systems reviewed and negative Physical Exam - Vital signs Vitals: Temp Pulse Resp BP Pulse Ox 97.9 F 78 20 132/77 H 99 05/10/20 03:16 05/10/20 03:16 05/10/20 03:16 05/10/20 03:16 05/10/20 03:16 - Notes Notes: PHYSICAL EXAMINATION: GENERAL: Well-appearing, well-nourished and in no acute distress. HEAD: Atraumatic, normocephalic. EYES: Pupils equal round and reactive to light, extraocular movements intact, conjunctiva are normal. ENT: Nares patent, oropharynx clear without exudates. Moist mucous membranes. NECK: Normal range of motion, supple without lymphadenopathy LUNGS: Breath sounds clear to auscultation bilaterally and equal. No wheezes rales or rhonchi. HEART: Regular rate and rhythm without murmurs ABDOMEN: Soft, nondistended abdomen. Mild tenderness to the right upper quadrant, negative Alegre sign. No guarding, no rebound. No masses appreciated. Female : deferred Musculoskeletal: Normal range of motion, no pitting or edema. No cyanosis. NEUROLOGICAL: Cranial nerves grossly intact. Normal speech, normal gait. Normal sensory, motor exams PSYCH: Normal mood, normal affect. SKIN: Warm, Dry, normal turgor, no rashes or lesions noted. Course - Re-evaluation Re-evalutation: Patient appears well, nontoxic, no leukocytosis or elevation in LFTs or bilirubin. Awaiting right upper quadrant ultrasound. Patient requesting something nonnarcotic for the pain, IV Ofirmev ordered. Gallbladder ultrasound shows cholelithiasis without cholecystitis. Patient will be referred to surgical clinic. Patient agreeable to this plan. - Vital Signs Vital signs: Temp Pulse Resp BP Pulse Ox 98 F 72 16 126/64 H 97 05/10/20 07:24 05/10/20 07:24 05/10/20 07:24 05/10/20 07:24 05/10/20 07:24 - Laboratory Results Result Diagrams: 05/10/20 04:01 05/10/20 04:01 Laboratory Results Interpreted: 05/10/20 05/10/20 04:01 04:01 Sodium 136.8 L Urine Blood MODERATE H Critical Laboratory Results Reviewed: No Critical Results - Radiology Results Critical Radiology Results Reviewed: No Critical Results Discharge - Discharge Clinical Impression: Cholelithiasis Qualifiers: Cholelithiasis location: other site Biliary obstruction: without biliary obstruction Qualified Code(s): K80.80 - Other cholelithiasis without obstruction Condition: Stable Disposition: HOME, SELF-CARE Additional Instructions: Gallbladder Disease Your evaluation shows evidence of gallbladder disease. The gallbladder is a pouch under the liver which stores bile. Stones, infection, or irritation of the gallbladder cause attacks of pain. Certain foods -- fats in particular -- may provoke attacks. The usual treatment for gallbladder disease is surgical removal of the gallbladder -- called a cholecystectomy. You will be referred to a physician qualified to advise you on the best treatment for your problem. Hospitalization is not necessary. Take clear liquids only until you are painfree. After that, you should stay on a low-fat diet, with frequent SMALL meals. Call the doctor or return at once if you develop severe pain, repeated vomiting, fever, or jaundice (a yellow color in the skin and whites of the eyes). Please follow-up with surgical clinic. Prescriptions: Hydrocodone/Acetaminophen [[place] 5-325 mg Tablet] 1 tab PO Q6HP PRN #10 tablet PRN Reason: Referrals: REYNALDO HARDEN MD [ACTIVE STAFF] - Follow up as needed
[2020-05-10] MEDS ORDERED: ACETAMINOPHEN 1,000 MG/100 ML RTUPB IV ONE (05:28)
--- NOTE | 2020-05-10 06:24 | RADIOLOGY REPORT (SQ) ---
EXAM DESCRIPTION: US ABDOMEN LIMITED COMPLETED DATE/TME: 05/10/2020 05:39 CLINICAL HISTORY: 35 years Female, RUQ ABD PAIN Comparison: None. LIMITATIONS: None. FINDINGS: Cholelithiasis including at the gallbladder neck, 0.2 cm gallbladder wall thickness negative sonographic Alegre's test, mild hepatic steatosis, a 0.2-cm diameter common bile duct, no intrahepatic ductal dilation, hepatopetal patent flow of the portal vein, 11-cm right kidney, partially obscured pancreas, visualized vasculature/abdominal aorta, and no significant ascites appear otherwise unremarkable. IMPRESSION: 1. Cholelithiasis including at the gallbladder neck. Differential diagnosis includes gallbladder colic. 2. Mild hepatic steatosis.
[2020-05-10] MEDS ORDERED: HYDROCODONE/ACETAMINOPHEN 5-325 MG (6 TAB/ER DISP) PO PRN (06:46)
[2020-05-10 07:26] VITALS: BP 126/64
== END 2020-05-10 07:26 | disposition home or self-care (01) ==
LOC: ER 03:07
DX: K80.80 Other cholelithiasis without obstruction (principal); R10.11 Right upper quadrant pain
CPT/HCPCS: 99285; 96365; 36415; 84702; 83690; 85025; 80053; 81001; 76705; J0131

== ENCOUNTER 2020-05-10 20:00 | Inpatient (IN) | payer SELFPAY ==
[2020-05-10] MEDS ORDERED: HYDROCODONE/ACETAMINOPHEN 5-325 MG TABLET PO ONE (20:35)
[2020-05-10] MEDS ORDERED: MORPHINE SULFATE 10 MG/ML INJ IV ONE ×3 (20:37→23:30)
[2020-05-10] MEDS ORDERED: ONDANSETRON HCL INJ/PF 4 MG/2 ML SDV IV ONE ×2 (20:37→23:30)
--- NOTE | 2020-05-10 20:38 | ER Document Report ---
ED Medical Screen (RME) - General Chief Complaint: Abdominal Pain Stated Complaint: GULLBLADDER PAIN, ABDOMINAL PAIN, Time Seen by Provider: 05/10/20 20:35 Notes: HPI: 35-year-old female presenting again for epigastric abdominal pain and right upper quadrant abdominal pain. States she was seen here yesterday diagnosed with gallstones, was prescribed hydrocodone which he did not take because it was an opiate but pain became much worse tonight with increased pressure in the upper abdomen. Nausea no vomiting. No fever PHYSICAL EXAMINATION: Appears moderately uncomfortable. Tenderness in the epigastric right upper quadrant region. On review of her records she had normal labs but did show cholelithiasis with gallstones at the gallbladder neck. I have greeted and performed a rapid initial assessment of this patient. A comprehensive ED assessment and evaluation of the patient, analysis of test results and completion of medical decision making process will be conducted by an additional ED providers. Please note that clinical decision making for this patient was made during the 2019 pandemic of novel coronavirus which caused a significant strain on the healthcare system including at this particular facility. Criteria for admission discharge and level of care decisions as well as treatment decisions have necessarily changed TRAVEL OUTSIDE OF THE [place] IN LAST 30 DAYS: No - Related Data Allergies/Adverse Reactions: kiwi [Kiwi (Actinidia Chinensis)] Allergy (Verified 05/10/20 03:32) Past Medical History Renal/ Medical History: Denies: Hx Peritoneal Dialysis GI Medical History: Reports: Hx Gastroesophageal Reflux Disease Psychiatric Medical History: Reports: Hx Anxiety - And panic attacks, Hx Depression - anxiety Past Surgical History: Reports: Hx Section, Hx Genitourinary Surgery - Fallopian tube removed., Hx Tubal Ligation - Immunizations Hx Diphtheria, Pertussis, Tetanus Vaccination: Yes Physical Exam - Vital signs Vitals: Temp Pulse Resp BP Pulse Ox 98.1 F 81 20 130/80 H 100 05/10/20 20:36 05/10/20 20:36 05/10/20 20:36 05/10/20 20:36 05/10/20 20:36 Course - Vital Signs Vital signs: Temp Pulse Resp BP Pulse Ox 98.1 F 81 20 130/80 H 100 05/10/20 20:36 05/10/20 20:36 05/10/20 20:36 05/10/20 20:36 05/10/20 20:36
--- NOTE | 2020-05-10 21:26 | RADIOLOGY REPORT (SQ) ---
EXAM DESCRIPTION: US GALLBLADDER LIMITED 9:00 PM. COMPLETED DATE/TME: 05/10/2020 21:12 CLINICAL HISTORY: 35 years, Female, eval for cholecystitis COMPARISON: Ultrasound from today at 5:20 AM. FINDINGS: Distended gallbladder. Borderline wall thickness of 3 mm. Positive Alegre sign. Several gallstones including stone in the gallbladder neck. Tiny fluid around the gallbladder. No evidence for biliary dilatation. Common bile duct is 3 mm IMPRESSION: Findings suspicious for acute cholecystitis.
[2020-05-10 21:35] LABS: ABSOLUTE BASOPHILS # (AUTO) 0.1 10^3/uL (0.0-0.2); ABSOLUTE LYMPHOCYTES (AUTO) 2.2 10^3/uL (0.5-4.7); ABSOLUTE MONOCYTES (AUTO) 0.6 10^3/uL (0.1-1.4); ABSOLUTE NEUT (AUTO) 8.2 10^3/uL (1.7-8.2); BASOPHILS % (AUTO) 0.5 % (0-2); EOSINOPHILS % (AUTO) 0.4 % (0-6); HEMATOCRIT 39.5 % (36.0-47.0); HEMOGLOBIN 13.5 g/dL (12.0-15.5); MEAN CORPUSCULAR HGB CONC 34.1 g/dL (32.0-36.0); MEAN CORPUSCULAR VOLUME 91 fl (80-97); MONOCYTES % (AUTO) 5.4 % (3-13); PLATELET COUNT 257 10^3/uL (150-450); RED BLOOD COUNT 4.35 10^6/uL (3.72-5.28); RED CELL DISTRIBUTION WIDTH 13.7 % (11.5-14.0); SEGMENTED NEUTROPHILS % (AUTO) 73.7 % (42-78); TOTAL CELLS COUNTED % (AUTO) 100 %; WHITE BLOOD COUNT 11.1 10^3/uL (4.0-10.5)
[2020-05-10 21:54] LABS: ALBUMIN 4.3 g/dL (3.5-5.0); ALKALINE PHOSPHATASE 107 U/L (38-126); ANION GAP 9 (5-19); ASPARTATE AMINO TRANSFERASE 27 U/L (14-36); BILIRUBIN,DIRECT 0.1 mg/dL (0.0-0.4); BILIRUBIN,TOTAL 0.4 mg/dL (0.2-1.3); BLOOD UREA NITROGEN 12 mg/dL (7-20); CALCIUM 9.6 mg/dL (8.4-10.2); CARBON DIOXIDE 23 mmol/L (22-30); CHLORIDE 100 mmol/L (98-107); GLUCOSE 132 mg/dL (75-110); TOTAL PROTEIN 7.8 g/dL (6.3-8.2)
[2020-05-10] MEDS ORDERED: ONDANSETRON 4 MG TAB.RAPDIS PO ONE (22:43)
--- NOTE | 2020-05-10 23:42 | ER Document Report ---
ED General - General Chief Complaint: Abdominal Pain Stated Complaint: GULLBLADDER PAIN, ABDOMINAL PAIN, Time Seen by Provider: 05/10/20 20:35 TRAVEL OUTSIDE OF THE [place] IN LAST 30 DAYS: No - HPI Notes: 35-year-old female presents with right upper quadrant abdominal pain. Patient states that she has had pain for the past 2 days, she has a known history of gallstones. She was in the emergency department yesterday and had an ultrasound done which showed gallstones and was discharged home. She did not take any medications for pain. Pain has progressively increased. Pain is a pressure sensation, worse with consuming food. Radiates to her right shoulder and back. - Related Data Allergies/Adverse Reactions: kiwi [Kiwi (Actinidia Chinensis)] Allergy (Verified 05/10/20 03:32) Home Medications: anxiety med Past Medical History - General Information source: Patient - Social History Smoking Status: Former Smoker Family History: Reviewed & Not Pertinent Renal/ Medical History: Denies: Hx Peritoneal Dialysis GI Medical History: Reports: Hx Gastroesophageal Reflux Disease Psychiatric Medical History: Reports: Hx Anxiety - And panic attacks, Hx Depression - anxiety Past Surgical History: Reports: Hx Section, Hx Genitourinary Surgery - Fallopian tube removed., Hx Tubal Ligation - Immunizations Hx Diphtheria, Pertussis, Tetanus Vaccination: Yes Review of Systems - Review of Systems Constitutional: denies: Fever EENT: No symptoms reported Cardiovascular: No symptoms reported Respiratory: No symptoms reported Gastrointestinal: Abdominal pain, Nausea. denies: Vomiting Genitourinary: No symptoms reported Female Genitourinary: No symptoms reported Musculoskeletal: No symptoms reported Skin: No symptoms reported Hematologic/Lymphatic: No symptoms reported Neurological/Psychological: No symptoms reported Physical Exam - Vital signs Vitals: Temp Pulse Resp BP Pulse Ox 98.1 F 81 20 130/80 H 100 05/10/20 20:36 05/10/20 20:36 05/10/20 20:36 05/10/20 20:36 05/10/20 20:36 - General General appearance: Alert In distress: None - HEENT Head: Normocephalic, Atraumatic Eyes: No: Scleral icterus Extraocular movements intact: Yes Pupils: PERRL - Respiratory Breath sounds: Normal - Cardiovascular Rhythm: Regular Heart sounds: Normal auscultation - Abdominal Distension: No distension Bowel sounds: Normal Tenderness: Tender - Right upper quadrant. No: Guarding, Rebound - Extremities General upper extremity: Normal ROM General lower extremity: Normal ROM - Neurological Neuro grossly intact: Yes Cognition: Normal Orientation: AAOx4 - Psychological Associated symptoms: Normal affect - Skin Skin Temperature: Warm Course - Re-evaluation Re-evalutation: 35-year-old female history of cholecystitis here for worsening right upper quadrant pain. Seen in the ED yesterday and did actually have stone in the gallbladder neck. Repeat ultrasound has been performed the triage process which shows a distended gallbladder, wall thickening, pericholecystic fluid, and again a large stone in the neck and within the gallbladder. Exam and imaging consistent with acute cholecystitis. She is afebrile, nontoxic-appearing, hemodynamically stable. She has a slight leukocytosis and a normal T bili. Plan for pain control, keep n.p.o. with maintenance fluids, rapid Covid test and consult surgery. 05/11/20 00:[address] Jeff, will evaluate patient in the ED 05/11/20 03:40 Patient to be admitted to the surgical service - Vital Signs Vital signs: Temp Pulse Resp BP Pulse Ox 98.3 F 82 16 114/65 98 05/11/20 03:01 05/11/20 03:01 05/11/20 03:01 05/11/20 03:01 05/11/20 03:01 - Laboratory Results Result Diagrams: 05/10/20 21:25 05/10/20 21:25 Laboratory Results Interpreted: 05/10/20 05/10/20 21:25 21:25 WBC 11.1 H Sodium 132.4 L Glucose 132 H Critical Laboratory Results Reviewed: No Critical Results - Radiology Results Critical Radiology Results Reviewed: No Critical Results Discharge - Discharge Clinical Impression: Acute cholecystitis Disposition: ADMITTED INPATIENT Admitting Provider: Surgicalist Unit Admitted: Surgical Floor
[2020-05-10] MEDS ORDERED: RINGERS SOLUTION,LACTATED 1,000 ML IV ONE (23:52)
[2020-05-10] MEDS ORDERED: KETOROLAC TROMETHAMINE INJ/PF 30 MG/1 ML SDV IV ONE (23:52)
--- NOTE | 2020-05-11 00:50 | PDOC H&P ---
History of Present Illness History of Present Illness: ROBIN SOMMER is a 35 year old female presenting again for epigastric abdominal pain and right upper quadrant abdominal pain. States she was seen here yesterday diagnosed with gallstones, was prescribed hydrocodone which he did not take because it was an opiate but pain became much worse tonight with increased pressure in the upper abdomen. Nausea no vomiting. No fever Past Medical History GI Medical History: Reports: Gastroesophageal Reflux Disease Psychiatric Medical History: Reports: Depression - anxiety Past Surgical History Past Surgical History: Reports: Section, Tubal Ligation Social History Smoking Status: Former Smoker Family History Family History: Reviewed & Not Pertinent Parental Family History Reviewed: No Children Family History Reviewed: NA Sibling(s) Family History Reviewed.: NA Medication/Allergy Home Medications: Vitamin B Complex 1 each PO DAILY 08/10/18 Amox Tr/Potassium Clavulanate [Augmentin 875-125 Tablet] 1 tab PO BID 10 Days #20 tablet 08/22/18 Fluticasone Propionate [Flonase Nasal [place] 50 Mcg/[place] 16 gm] 2 sprays NASL Q12 #1 inhaler 08/22/18 Ranitidine HCl [Zantac 150 mg Tablet] 150 mg PO BID #60 tablet 08/22/18 Nitrofurantoin Monohyd/M-Cryst [Macrobid 100 mg Capsule] 100 mg PO BID 5 Days #10 cap 12/07/19 Tramadol HCl [Ultram] 50 mg PO Q6 PRN 3 Days #8 tablet 12/07/19 Hydrocodone/Acetaminophen [[place] 5-325 mg Tablet] 1 tab PO Q6HP PRN #10 tablet 05/10/20 Allergies/Adverse Reactions: kiwi [Kiwi (Actinidia Chinensis)] Allergy (Verified 05/10/20 03:32) Review of Systems Constitutional: PRESENT: fatigue, weakness Eyes: ABSENT: as per HPI, visual disturbances, other Ears: ABSENT: as per HPI, hearing changes, other Nose, Mouth, and Throat: ABSENT: as per HPI, headache(s), mouth pain, sore throat, vertigo, other Breasts: ABSENT: as per HPI, other Cardiovascular: ABSENT: as per HPI, chest pain, dyspnea on exertion, edema, orthropnea, palpitations, other Respiratory: ABSENT: as per HPI, cough, dyspnea, hemoptysis, sputum, other Gastrointestinal: PRESENT: as per HPI Genitourinary: ABSENT: as per HPI, difficulty urinating, dysuria, hematuria, nocturia, other Musculoskeletal: ABSENT: as per HPI, back pain, deformity, joint swelling, muscle weakness, other Integumentary: ABSENT: as per HPI, diaphoresis, erythema, lesions, pruritus, rash, wounds, other Neurological: ABSENT: as per HPI, abnormal gait, abnormal movements, abnormal speech, confusion, convulsions, dizziness, focal weakness, frequent falls, lack of coordination, memory loss, numbness, paresthesias, restless legs, syncope, tingling, tremor(s), vertigo, weakness, other Psychiatric: ABSENT: as per HPI, anxiety, depression, hallucinations, homidical ideation, suicidal ideation, other Endocrine: ABSENT: as per HPI, cold intolerance, flushing, heat intolerance, menstrual abnormalities, polydipsia, polyphagia, polyuria, other Hematologic/Lymphatic: ABSENT: as per HPI, easy bleeding, easy bruising, lymphadenopathy, other Allergic/Immunologic: ABSENT: as per HPI, seasonal rhinorrhea, other Physical Exam Vital Signs: Temp Pulse Resp BP Pulse Ox 98.1 F 81 20 130/80 H 100 05/10/20 20:36 05/10/20 20:36 05/10/20 20:36 05/10/20 20:36 05/10/20 20:36 Intake & Output 05/09/20 05/10/20 05/11/20 06:59 06:59 06:59 Weight 74.2 kg General appearance: PRESENT: mild distress Head exam: PRESENT: normocephalic Eye exam: PRESENT: EOMI Ear exam: PRESENT: normal external ear exam Mouth exam: PRESENT: moist Neck exam: PRESENT: full ROM Respiratory exam: PRESENT: clear to auscultation zeferino Cardiovascular exam: PRESENT: RRR Pulses: PRESENT: normal radial pulses, normal femoral pulses Vascular exam: PRESENT: normal capillary refill Breast: PRESENT: Normal GI/Abdominal exam: PRESENT: tenderness - ruq Rectal exam: PRESENT: deferred Extremities exam: PRESENT: full ROM Musculoskeletal exam: PRESENT: ambulatory, full ROM Neurological exam: PRESENT: alert, awake, oriented to person, oriented to place Psychiatric exam: PRESENT: appropriate affect Skin exam: PRESENT: dry Results Laboratory Results: 05/10/20 21:25 05/10/20 21:25 05/10/20 05/10/20 21:25 21:25 WBC 11.1 H RBC 4.35 Hgb 13.5 Hct 39.5 MCV 91 MCH 31.0 MCHC 34.1 RDW 13.7 Plt Count 257 Seg Neutrophils % 73.7 Sodium 132.4 L Potassium 4.0 Chloride 100 Carbon Dioxide 23 Anion Gap 9 BUN 12 Creatinine 0.59 Est GFR ( Amer) > 60 Glucose 132 H Calcium 9.6 Total Bilirubin 0.4 AST 27 Alkaline Phosphatase 107 Total Protein 7.8 Albumin 4.3 Lipase 47.7 Impressions: Abdomen Ultrasound 05/10/20 20:36 IMPRESSION: Findings suspicious for acute cholecystitis. Assessment & Plan - Time Anticipated Discharge Disposition: Home, Self Care Anticipated Discharge Timeframe: within 48 hours - Plan Summary Plan Summary: impression acute cholecystitis plan admit for pain control and plan on lap dong.
[2020-05-11] MEDS: HYDROMORPHONE HCL INJ/PF 2 MG/ML AMPULE IV PRN ×4 (02:04→23:35)
[2020-05-11] MEDS: POTASSI CL 20 MEQ/D5-1/2NS 1L 1,000 ML IV PRN ×2 (03:15→13:45)
[2020-05-11] MEDS: METRONIDAZOLE 500 MG/NS RTU 500 MG/100 ML RTUPB IV SCH ×2 (05:09→14:26)
[2020-05-11] MEDS: CEFAZOLIN 1 GM/D5W RTU 1 GM/50 ML RTUPB IV SCH ×2 (06:16→13:57)
[2020-05-11] MEDS ORDERED: ACETAMINOPHEN 1,000 MG/100 ML RTUPB IV ONE ×2 (06:27→17:47)
[2020-05-11] MEDS: ACETAMINOPHEN 1,000 MG/100 ML RTUPB IV SCH ×4 (06:51→23:36)
--- NOTE | 2020-05-11 09:00 | PDOC PROGRESS REPORT ---
Subjective Date:: 05/11/20 Subjective:: Still has right upper quadrant abdominal pain. Reason For Visit: CHOLECYSTITIS Physical Exam Vital Signs: Temp Pulse Resp BP Pulse Ox 97.5 F 71 16 101/54 L 100 05/11/20 07:25 05/11/20 07:25 05/11/20 07:25 05/11/20 07:25 05/11/20 07:25 Intake & Output 05/10/20 05/11/20 05/12/20 06:59 06:59 06:59 Intake Total 338 Balance 338 Weight 75.8 kg General appearance: PRESENT: no acute distress, cooperative Respiratory exam: PRESENT: clear to auscultation zeferino Cardiovascular exam: PRESENT: RRR GI/Abdominal exam: PRESENT: other - Soft, nondistended, right upper quadrant abdominal tenderness with out rigidity nor guarding. Results Laboratory Results: 05/10/20 21:25 05/10/20 21:25 05/10/20 05/10/20 21:25 21:25 WBC 11.1 H RBC 4.35 Hgb 13.5 Hct 39.5 MCV 91 MCH 31.0 MCHC 34.1 RDW 13.7 Plt Count 257 Seg Neutrophils % 73.7 Sodium 132.4 L Potassium 4.0 Chloride 100 Carbon Dioxide 23 Anion Gap 9 BUN 12 Creatinine 0.59 Est GFR ( Amer) > 60 Glucose 132 H Calcium 9.6 Total Bilirubin 0.4 AST 27 Alkaline Phosphatase 107 Total Protein 7.8 Albumin 4.3 Lipase 47.7 Impressions: Abdomen Ultrasound 05/10/20 20:36 IMPRESSION: Findings suspicious for acute cholecystitis. Assessment & Plan - Diagnosis (1) Acute cholecystitis Is this a current diagnosis for this admission?: Yes Plan: We will plan laparoscopic cholecystectomy possible open cholecystectomy. I have discussed with the patient the risk and benefits of the procedure including risk of bile duct injury, intestinal injury, bleeding, infection, cardiopulmonary ri sks, postcholecystectomy diarrhea, possibility of conversion to an open procedure. Patient understands and agrees to proceed. With the 3 days of persistent symptoms the procedure may be technically challenging but I think it would be appropriate to try laparoscopic approach. - Time Anticipated Discharge Disposition: Home, Self Care Anticipated Discharge Timeframe: within 24 hours
[2020-05-11] MEDS: FAMOTIDINE INJ/PF 20 MG/2 ML SDV IV SCH ×2 (09:50→22:05)
[2020-05-11] MEDS: ONDANSETRON HCL INJ/PF 4 MG/2 ML SDV IV PRN ×2 (10:17→20:25)
[2020-05-11] MEDS ORDERED: BUPIVACAINE HCL 0.25 % INJ/PF (2.5 MG/1 ML) 30 ML VIAL ONE (13:39)
[2020-05-11] MEDS ORDERED: MIDAZOLAM 2 MG/2 ML INJ ONE (14:36)
[2020-05-11] MEDS ORDERED: FENTANYL CITRATE INJ/PF 100 MCG/2 ML AMPUL ONE ×2 (14:36→17:47)
[2020-05-11] MEDS ORDERED: EPHEDRINE SULFATE INJ 50 MG/1 ML AMPULE ONE (14:37)
[2020-05-11] MEDS ORDERED: PROPOFOL INJ 200 MG/20 ML VIAL IV ONE (14:37)
[2020-05-11] MEDS ORDERED: MEPERIDINE HCL/PF INJ 25 MG/1 ML DISP.SYRIN IV PRN (16:22)
[2020-05-11] MEDS ORDERED: PROMETHAZINE HCL INJ 25 MG/1 ML VIAL IV PRN ×2 (16:22)
[2020-05-11] MEDS ORDERED: FENTANYL CITRATE INJ/PF 100 MCG/2 ML AMPUL IV PRN ×3 (16:22)
[2020-05-11] MEDS ORDERED: DIPHENHYDRAMINE HCL 50 MG/ML VIAL IV PRN (16:22)
[2020-05-11] MEDS ORDERED: MORPHINE SULFATE 10 MG/ML INJ IV PRN (17:24)
--- NOTE | 2020-05-11 17:24 | Operative Report ---
Operative Report DATE OF SURGERY: 05/11/20 PREOPERATIVE DIAGNOSIS: Acute cholecystitis POSTOPERATIVE DIAGNOSIS: Same OPERATION: Laparoscopic cholecystectomy SURGEON: BELLA GUARDADO ANESTHESIA: GA TISSUE REMOVED OR ALTERED: Gallbladder COMPLICATIONS: None ESTIMATED BLOOD LOSS: 100 INTRAOPERATIVE FINDINGS: Markedly edematous inflamed gallbladder. gallstones. PROCEDURE: Informed consent was obtained. Patient was brought to the operating room placed operating table in supine position. After satisfactory induction of general anesthesia, patient's abdomen was prepped and draped in usual sterile fashion. A supraumbilical midline incision was made and dissection carried down to the fascia the peritoneal cavity entered without difficulty. Reyes trocar was inserted. Pneumoperitoneum produced good patient toleration. 5 mm trocar was placed in the subxiphoid location.Two 5 mm trochars were placed in the right subcostal location. The gallbladder appeared markedly edematous and was inflamed. The gallbladder was grasped and retracted anteriorly. It could not be retracted cephalad over the dome. The infundibulum of the gallbladder was grasped retracted laterally and inferiorly thus exposing calot's triangle. The cystic duct gallbladder junction was clearly identified and the cystic duct was clipped and divided. Cystic artery was likewise taken. The gallbladder was taken off the gallbladder bed using the hook electrocautery technique. There was some blood loss during this portion of the procedure and the gallbladder bed was cauterized at the end of the case to obtain good hemostasis. The gallbladder was removed with an Endobag through the Reyes trocar site fascial defect. The operative field was irrigated and irrigant aspirated out. Irrigation fluid was clear at the end of the case. There was no stone nor bile spillage during the case. Hemostasis appeared excellent. All trochars were removed under the direct vision a laparoscope to ensure hemostasis. The Reyes trocar site fascial defect was closed with interrupted Vicryl sutures. All skin incisions were closed with subcuticular interrupted Monocryl sutures. Patient tolerated procedure well no apparent complications and was taken to the recovery area in stable condition.
--- NOTE | 2020-05-11 21:49 | PDOC PROGRESS REPORT ---
Subjective Date:: 05/11/20 Subjective:: Some nausea early on but feels better currently. Abdomen feels better. Reason For Visit: CHOLECYSTITIS Physical Exam Vital Signs: Temp Pulse Resp BP Pulse Ox 98.1 F 74 18 113/60 94 05/11/20 20:36 05/11/20 18:33 05/11/20 18:33 05/11/20 18:33 05/11/20 18:33 Intake & Output 05/10/20 05/11/20 05/12/20 06:59 06:59 06:59 Intake Total 338 2400 Output Total 20 Balance 338 2380 Weight 75.8 kg General appearance: PRESENT: no acute distress, cooperative Respiratory exam: PRESENT: clear to auscultation zeferino Cardiovascular exam: PRESENT: RRR GI/Abdominal exam: PRESENT: other - Soft, nondistended, very mild right-sided abdominal tenderness much improved from preoperative exam. Results Laboratory Results: 05/10/20 21:25 05/10/20 21:25 05/10/20 21:25 Sodium 132.4 L Potassium 4.0 Chloride 100 Carbon Dioxide 23 Anion Gap 9 BUN 12 Creatinine 0.59 Est GFR ( Amer) > 60 Glucose 132 H Calcium 9.6 Total Bilirubin 0.4 AST 27 Alkaline Phosphatase 107 Total Protein 7.8 Albumin 4.3 Lipase 47.7 Impressions: Abdomen Ultrasound 05/10/20 20:36 IMPRESSION: Findings suspicious for acute cholecystitis. Assessment & Plan - Diagnosis (1) Acute cholecystitis Is this a current diagnosis for this admission?: Yes Plan: Doing well after lap dong. Some postoperative nausea. If patient looks well in the morning and her labs look okay will plan discharge home tomorrow. - Time Anticipated Discharge Disposition: Home, Self Care Anticipated Discharge Timeframe: within 24 hours
[2020-05-11] MEDS: NORMAL SALINE 1000 ML 1,000 ML IV PRN (22:05)
[2020-05-12] MEDS: HYDROMORPHONE HCL INJ/PF 2 MG/ML AMPULE IV PRN (05:00)
[2020-05-12] MEDS: ACETAMINOPHEN 1,000 MG/100 ML RTUPB IV SCH (06:24)
[2020-05-12] MEDS: NORMAL SALINE 1000 ML 1,000 ML IV PRN (06:47)
[2020-05-12 07:20] LABS: ABSOLUTE LYMPHOCYTES (AUTO) 1.6 10^3/uL (0.5-4.7); ABSOLUTE MONOCYTES (AUTO) 0.5 10^3/uL (0.1-1.4); ABSOLUTE NEUT (AUTO) 9.2 10^3/uL (1.7-8.2); BASOPHILS % (AUTO) 0.1 % (0-2); HEMATOCRIT 32.6 % (36.0-47.0); LYMPHOCYTES % (AUTO) 14.2 % (13-45); MEAN CORPUSCULAR HEMOGLOBIN 31.1 pg (27.0-33.4); MEAN CORPUSCULAR HGB CONC 33.7 g/dL (32.0-36.0); MEAN CORPUSCULAR VOLUME 92 fl (80-97); MONOCYTES % (AUTO) 4.8 % (3-13); PLATELET COUNT 214 10^3/uL (150-450); RED BLOOD COUNT 3.54 10^6/uL (3.72-5.28); RED CELL DISTRIBUTION WIDTH 13.8 % (11.5-14.0); SEGMENTED NEUTROPHILS % (AUTO) 80.9 % (42-78); TOTAL CELLS COUNTED % (AUTO) 100 %; WHITE BLOOD COUNT 11.3 10^3/uL (4.0-10.5)
[2020-05-12 07:47] LABS: ALBUMIN 3.1 g/dL (3.5-5.0); ALKALINE PHOSPHATASE 73 U/L (38-126); ANION GAP 6 (5-19); ASPARTATE AMINO TRANSFERASE 59 U/L (14-36); BILIRUBIN,DIRECT 0.1 mg/dL (0.0-0.4); BILIRUBIN,TOTAL 0.5 mg/dL (0.2-1.3); BLOOD UREA NITROGEN 6 mg/dL (7-20); CALCIUM 7.8 mg/dL (8.4-10.2); CARBON DIOXIDE 23 mmol/L (22-30); CHLORIDE 105 mmol/L (98-107); GLUCOSE 103 mg/dL (75-110); POTASSIUM 3.9 mmol/L (3.6-5.0)
[2020-05-12] MEDS: FAMOTIDINE INJ/PF 20 MG/2 ML SDV IV SCH (10:06)
[2020-05-12 10:23] VITALS: BP 109/58
[2020-05-12] MEDS ORDERED: GLYCOPYRROLATE 1 MG/5 ML VIAL ONE (11:00)
[2020-05-12] MEDS ORDERED: NEOSTIGMINE METHYLSULFATE 10 MG/10 ML VIAL ONE (11:00)
[2020-05-12] MEDS ORDERED: DEXAMETHASONE SOD PHOSPHATE INJ 4 MG/1 ML VIAL ONE (11:00)
[2020-05-12] MEDS ORDERED: LIDOCAINE 2% INJ-PF (20 MG/ML) 2 ML AMPUL ONE (11:00)
[2020-05-12] MEDS ORDERED: ONDANSETRON HCL INJ/PF 4 MG/2 ML SDV ONE (11:00)
[2020-05-12] MEDS ORDERED: KETOROLAC TROMETHAMINE 60 MG/2 ML SDV ONE (11:00)
--- NOTE | 2020-05-12 11:33 | PDOC DISCHARGE SUMMARY ---
General - Admit/Disc Date/PCP Admission Date/Primary Care Provider: 05/11/20 01:01 Discharge Date: 05/12/20 - Discharge Diagnosis Final Diagnosis: Acute cholecystitis with cholelithiasis - Assessment Summary: Patient is a 35-year-old female, otherwise healthy, presents emergency department complaining of acute onset abdominal pain right upper quadrant radiating to the back. She was found to be tender, leukocytosis, and 7 findings consistent with acute cholecystitis. She was kept n.p.o., on IV fluids intravenous antibiotics and admitted to the surgical service. Her Covid test was negative. She was taken to the operating room on 05/11/[address] Alvin Davis and underwent a laparoscopic cholecystectomy. She tolerated procedure well, had no postoperative complications, and the following morning was tolerating diet, moving her bowels, voiding and had adequate pain control. She was felt to receive maximum benefit from hospitalization was discharged home. Final diagnosis: Acute and chronic cholecystitis with cholelithiasis Disposition Patient will be discharged home to care of family follow-up with a healthcare provider at [facility] in 1 to 2 weeks. She will shower in 48 hours. She will take Motrin or Tylenol as needed pain. - Additional Information Resuscitation Status: Full Code Discharge Activity: Activity As Tolerated, No Lifting Over 10 Pounds Referrals: LG BLEVINS MD [ACTIVE STAFF] - 05/25/20 8:30 am Home Medications: No Home Medications 05/11/20 History of Present Illiness History of Present Illness: ROBIN SOMMER is a 35 year old female Physical Exam Vital Signs: Temp Pulse Resp BP Pulse Ox 97.8 F 63 17 109/58 L 100 05/12/20 10:49 05/12/20 10:49 05/12/20 10:49 05/12/20 10:49 05/12/20 10:49 Intake & Output 05/11/20 05/12/20 05/13/20 06:59 06:59 06:59 Intake Total 338 3600 100 Output Total 20 Balance 338 3580 100 Weight 75.8 kg 78.4 kg Results Laboratory Results: WBC 11.3 10^3/uL (4.0-10.5) H 05/12/20 06:38 RBC 3.54 10^6/uL (3.72-5.28) L 05/12/20 06:38 Hgb 11.0 g/dL (12.0-15.5) L D 05/12/20 06:38 Hct 32.6 % (36.0-47.0) L 05/12/20 06:38 MCV 92 fl (80-97) 05/12/20 06:38 MCH 31.1 pg (27.0-33.4) 05/12/20 06:38 MCHC 33.7 g/dL (32.0-36.0) 05/12/20 06:38 RDW 13.8 % (11.5-14.0) 05/12/20 06:38 Plt Count 214 10^3/uL (150-450) 05/12/20 06:38 Lymph % (Auto) 14.2 % (13-45) 05/12/20 06:38 [place] % (Auto) 4.8 % (3-13) 05/12/20 06:38 Eos % (Auto) 0.0 % (0-6) 05/12/20 06:38 Baso % (Auto) 0.1 % (0-2) 05/12/20 06:38 Absolute Neuts (auto) 9.2 10^3/uL (1.7-8.2) H 05/12/20 06:38 Absolute Lymphs (auto) 1.6 10^3/uL (0.5-4.7) 05/12/20 06:38 Absolute Monos (auto) 0.5 10^3/uL (0.1-1.4) 05/12/20 06:38 Absolute Eos (auto) 0.0 10^3/uL (0.0-0.6) 05/12/20 06:38 Absolute Basos (auto) 0.0 10^3/uL (0.0-0.2) 05/12/20 06:38 Seg Neutrophils % 80.9 % (42-78) H 05/12/20 06:38 Sodium 134.0 mmol/L (137-145) L 05/12/20 06:38 Potassium 3.9 mmol/L (3.6-5.0) 05/12/20 06:38 Chloride 105 mmol/L (98-107) 05/12/20 06:38 Carbon Dioxide 23 mmol/L (22-30) 05/12/20 06:38 Anion Gap 6 (5-19) 05/12/20 06:38 BUN 6 mg/dL (7-20) L 05/12/20 06:38 Creatinine 0.42 mg/dL (0.52-1.25) L 05/12/20 06:38 Est GFR ( Amer) > 60 (>60) 05/12/20 06:38 Est GFR (MDRD) Non-Af > 60 (>60) 05/12/20 06:38 Glucose 103 mg/dL (75-110) 05/12/20 06:38 Calcium 7.8 mg/dL (8.4-10.2) L 05/12/20 06:38 Total Bilirubin 0.5 mg/dL (0.2-1.3) 05/12/20 06:38 Direct Bilirubin 0.1 mg/dL (0.0-0.4) 05/12/20 06:38 Neonat Total Bilirubin Not Reportable 05/12/20 06:38 Neonat Direct Bilirubin Not Reportable 05/12/20 06:38 Neonat Indirect Bili Not Reportable 05/12/20 06:38 AST 59 U/L (14-36) H 05/12/20 06:38 ALT 65 U/L (<35) H 05/12/20 06:38 Alkaline Phosphatase 73 U/L (38-126) 05/12/20 06:38 Total Protein 6.0 g/dL (6.3-8.2) L 05/12/20 06:38 Albumin 3.1 g/dL (3.5-5.0) L 05/12/20 06:38 Lipase 47.7 U/L (23-300) 05/10/20 21:25 Influenza A (RT-PCR) NEGATIVE (NEGATIVE) 05/11/20 01:30 Influenza B (RT-PCR) NEGATIVE (NEGATIVE) 05/11/20 01:30 RSV (RT-PCR) NEGATIVE (NEGATIVE) 05/11/20 01:30 SARS-CoV-2 Rap RNA(RT-PCR) NEGATIVE (NEGATIVE) 05/11/20 01:30 Impressions: Abdomen Ultrasound 05/10/20 20:36 IMPRESSION: Findings suspicious for acute cholecystitis.
== END 2020-05-12 11:45 | disposition home or self-care (01) | DRG 419 ==
LOC: ER 20:00 → EH 05-11 01:01 → 2N 05-11 03:34
PROVIDERS: ATTEND Surgery
PROC: 0FT44ZZ Resection of Gallbladder, Percutaneous Endoscopic Approach (ICD-10-PCS; principal; 2020-05-11 14:45)
DX: K80.00 Calculus of gallbladder with acute cholecystitis without obstruction (principal); K21.9 Gastro-esophageal reflux disease without esophagitis; F41.9 Anxiety disorder, unspecified; D72.829 Elevated white blood cell count, unspecified; F32.9 Major depressive disorder, single episode, unspecified; Z87.891 Personal history of nicotine dependence
CPT/HCPCS: 36415; 76705; 790; 80053; 83690; 85025; 87040; 87070; 88304; 94799; 96374; 96375; 99285; 0241U; C9803; J0131; J0690; J1100; J1170; J1885; J2250; J2270; J2405; J2704; J2710; J3010; J3480; J3490; J7030; J7120; S0028; S0119